=== PATIENT | female | born 1995 | race Caucasian/White ===

== ENCOUNTER 2018-01-07 10:55 | Outpatient (CLI) | payer BC, SELFPAY ==
[2018-01-07 12:02] LABS: HCT 40.4 % (36.0-46.0); HGB 13.6 g/dL (12.0-15.5); Mean Corp. HGB Concentration 33.7 g/dL (32.0-36.0); Mean Corpuscular Hemoglobin 31.3 pg (27.0-33.0); Mean Corpuscular Volume 92.9 fL (80-95); Mean Platelet Volume 10.7 fL (8.0-11.0); Platelet Count 286 x1000/uL (130-400); RBC 4.35 m/cumm (4.00-5.20); RBC Distribution Width 13.2 % (11.7-14.6); White Blood Cell Count 6.94 k/cumm (4.4-10.8)
[2018-01-07 12:25] LABS: Hemoglobin A1C 5.2 % (4.5-6.2)
== END 2018-01-07 11:15 ==
PROVIDERS: PCP Nurse Practitioner; Visit Provider Nurse Practitioner
DX: R53.83 Other fatigue (principal)
CPT/HCPCS: 36415; 85027; 83036; 84443

== ENCOUNTER 2019-04-01 15:28 | Outpatient (REF) | payer BC, SELFPAY ==
--- NOTE | 2019-04-01 15:15 | PAPFT_PTH ---
PATIENT: Laurie Deutsch LOC: [facility] U#:[id number] AGE/SX: 23/F ROOM: RE04/01/[address]: Aleksandr Mcdowell : 1995 BED: DIS: 04/01/2019 SPEC #: [id number] RECD: 04/01/19 18:01 STATUS: JELANI REDebbie #: [id number] ODILON: 04/01/19 15:[address]: Aleksandr Mcdowell DEPT: [facility] Cytology RECD BY: Malissa Emery ENTERED: 04/01/19 18:01 SP TYPE: PAPFT OTHR DR: Deepika Moreno Tissues: 1 - CX/ENDOCX FOR PAP SMEARS Procedures: PAP THIN PREP/[facility] Screening Comments: [id number]
== END 2019-04-01 15:48 ==
LOC: NCHCN 15:28
PROVIDERS: PCP Nurse Practitioner; Visit Provider Nurse Practitioner Family
DX: Z12.4 Encounter for screening for malignant neoplasm of cervix (principal)
CPT/HCPCS: 88142

== ENCOUNTER 2019-04-01 17:59 | Outpatient (REF) | payer BC, SELFPAY ==
[2019-04-01 18:36] LABS: HCT 40.8 % (36.0-46.0); HGB 13.6 g/dL (12.0-15.5); Mean Corp. HGB Concentration 33.3 g/dL (32.0-36.0); Mean Corpuscular Hemoglobin 30.4 pg (27.0-33.0); Mean Corpuscular Volume 91.3 fL (80-95); Mean Platelet Volume 10.4 fL (8.0-11.0); Platelet Count 384 x1000/uL (130-400); RBC 4.47 m/cumm (4.00-5.20); RBC Distribution Width 13.2 % (11.7-14.6); White Blood Cell Count 7.41 k/cumm (4.4-10.8)
[2019-04-01 19:10] LABS: ALT 25 U/L (14-59); AST 21 U/L (15-37); Albumin 4.1 g/dL (3.4-5.0); Alkaline Phosphatase 59 U/L (46-116); BUN 12 mg/dL (7-18); Bilirubin, Total 0.2 mg/dL (0.2-1.0); CREATININE 0.56 mg/dL (0.55-1.02); Calcium 9.6 mg/dL (8.5-10.1); Chloride 100 mmol/L (98-107); Glucose 92 mg/dL (74-106); Potassium 4.7 mmol/L (3.5-5.1); Sodium 140 mmol/L (136-145); TSH (W/Ref FT4) 3.86 uIU/mL (0.36-3.74); Total Protein 7.6 g/dL (6.4-8.2)
[2019-04-01 19:47] LABS: FREE T4 0.89 ng/dL (0.76-1.46)
== END 2019-04-01 18:19 ==
LOC: NCHCN 17:59
PROVIDERS: PCP Nurse Practitioner; Visit Provider Nurse Practitioner Family
DX: R53.83 Other fatigue (principal); R51 Headache
CPT/HCPCS: 80053; 85027; 84439; 84443

== ENCOUNTER 2019-11-12 02:11 | Outpatient (CLI) | payer BC, SELFPAY ==
[2019-11-12 07:58] LABS: Abs Immature Grans 0.02 10^3/uL (0.0-0.06); Absolute Basophil Count 0.04 10^3/uL (0.0-0.2); Absolute Eosinophil Count 0.04 10^3/uL (0.0-0.7); Absolute Lymphocyte Count 1.92 10^3/uL (1.2-3.4); Absolute Monocyte Count 0.55 10^3/uL (0.1-0.8); Absolute Neutrophil Count 4.55 10^3/uL (1.2-6.7); Basophils % 0.6; Eosinophils % 0.6; HCT 38.8 % (36.0-46.0); HGB 12.9 g/dL (11.2-15.7); Immature Grans % 0.3; MCH 29.9 pg (27.0-33.0); MCHC 33.2 % (32.0-36.0); MPV 10.1 fL (8.0-11.0); Monocytes % 7.7; Neutrophils % 63.8; Nucleated RBC 0 %; Platelet Count 329 10^3/uL (130-400); RBC 4.31 10^6/uL (3.93-5.22); RDW 13.2 % (11.7-14.6); RDW-SD 43.8 fL; WBC 7.12 10^3/uL (4.4-10.8)
[2019-11-12 08:39] LABS: ESR 29 mm/hr (0-20)
[2019-11-12 08:45] LABS: Iron 66 ug/dL (50-170); Total Iron Binding Capacity 371 ug/dL (250-450); Transferrin Sat 18 % (15-50)
[2019-11-12 08:57] LABS: ALT 20 U/L (14-59); AST 12 U/L (15-37); Albumin 3.5 g/dL (3.4-5.0); Alkaline Phosphatase 64 U/L (46-116); BUN 10 mg/dL (7-18); Bilirubin, Total 0.4 mg/dL (0.2-1.0); CREATININE 0.64 mg/dL (0.55-1.02); Chloride 103 mmol/L (98-107); Ferritin 13 ng/mL (8-252); Glucose 87 mg/dL (74-106); Potassium 5.2 mmol/L (3.5-5.1); Sodium 138 mmol/L (136-145); TSH 2.26 uIU/mL (0.36-3.74); Total Protein 6.9 g/dL (6.4-8.2)
[2019-11-12 09:15] LABS: C-Reactive Protein 1.23 mg/dL (0.0-0.3); FREE T4 0.88 ng/dL (0.76-1.46)
[2019-11-12 16:48] LABS: T3,Free 3.4 pg/mL (2.8-5.3)
[2019-11-12 17:05] LABS: T3, Total 150 ng/dL (97-169)
[2019-11-13 09:34] LABS: Thyroperoxidase Antibody 30 U/mL (<=60)
[2019-11-13 15:24] LABS: ANA Interpretation Negative (Negative)
== END 2019-11-12 02:31 ==
PROVIDERS: PCP Nurse Practitioner Family; Visit Provider Naturopath
DX: R53.83 Other fatigue (principal); M25.50 Pain in unspecified joint; E55.9 Vitamin D deficiency, unspecified
CPT/HCPCS: 36415; 80053; 82306; 85652; 86141; 82728; 83540; 83550; 84439; 84443; 84480; 84481; 85025; 86038; 86140; 86376

== ENCOUNTER 2019-12-12 02:39 | Outpatient (CLI) | payer BC, SELFPAY ==
[2019-12-12 16:56] LABS: Iron 33 ug/dL (50-170); Total Iron Binding Capacity 355 ug/dL (250-450); Transferrin Sat 9 % (15-50)
[2019-12-12 17:32] LABS: Ferritin 19 ng/mL (8-252); Folate 16.4 ng/mL (8.6-20.0); Vitamin B12 639 pg/mL (193-986)
[2019-12-15 09:34] LABS: Homocysteine 12.1 umol/L (5.0-13.9)
[2019-12-15 10:16] LABS: IgA 182 mg/dL (85-499); IgG 945 mg/dL (610-1,616); IgM 109 mg/dL (35-242)
[2019-12-16 12:34] LABS: Food Panel #2, IgE <0.35 kU/L
[2019-12-17 15:06] LABS: IgA 182 mg/dL (85-499); Interpretation (See Note); Tissue Transglutaminase IgA <1.2 U/mL (<4.0)
== END 2019-12-12 02:59 ==
PROVIDERS: PCP Nurse Practitioner Family; Visit Provider Naturopath
DX: R53.83 Other fatigue (principal); R79.89 Other specified abnormal findings of blood chemistry; K52.9 Noninfective gastroenteritis and colitis, unspecified
CPT/HCPCS: 36415; 82784; 83090; 83516; 86001; 82607; 82728; 82746; 83540; 83550; 86003

== ENCOUNTER 2020-06-11 20:43 | Outpatient (REF) | payer BC, SELFPAY ==
[2020-06-14 15:05] LABS: HSV 1 DNA Result Negative (Negative); HSV 2 DNA Result Negative (Negative)
== END 2020-06-11 20:44 | disposition home or self-care (01) ==
LOC: NCHCN 20:43
PROVIDERS: PCP Nurse Practitioner Family; Visit Provider Physician Assistant
DX: N76.6 Ulceration of vulva (principal)
CPT/HCPCS: 87529

== ENCOUNTER 2020-06-18 21:35 | Outpatient (REF) | payer BC, SELFPAY ==
[2020-06-18 21:25] LABS: Anion Gap 12.1 mmol/L (3-11); BUN 12 mg/dL (7-18); CO2 23.9 mmol/L (21.0-32.0); CREATININE 0.6 mg/dL (0.55-1.02); Calcium 9.5 mg/dL (8.5-10.1); Chloride 103 mmol/L (98-107); Glucose 86 mg/dL (74-106); Potassium 4.4 mmol/L (3.5-5.1); Sodium 139 mmol/L (136-145); TSH (W/Ref FT4) 2.26 uIU/mL (0.36-3.74)
[2020-06-18 21:30] LABS: Abs Immature Grans 0.03 10^3/uL (0.0-0.06); Absolute Basophil Count 0.05 10^3/uL (0.0-0.2); Absolute Eosinophil Count 0.03 10^3/uL (0.0-0.7); Absolute Lymphocyte Count 2.23 10^3/uL (1.2-3.4); Absolute Monocyte Count 0.56 10^3/uL (0.1-0.8); Absolute Neutrophil Count 6.68 10^3/uL (1.2-6.7); Basophils % 0.5; Eosinophils % 0.3; HCT 40.3 % (36.0-46.0); HGB 13.4 g/dL (11.2-15.7); Immature Grans % 0.3; Lymphocytes % 23.3; MCH 29.4 pg (27.0-33.0); MCHC 33.3 % (32.0-36.0); MCV 88.4 fL (80-95); Monocytes % 5.8; Neutrophils % 69.8; Nucleated RBC 0 %; Platelet Count 392 10^3/uL (130-400); RBC 4.56 10^6/uL (3.93-5.22); RDW 13.2 % (11.7-14.6); RDW-SD 42.8 fL; WBC 9.58 10^3/uL (4.4-10.8)
== END 2020-06-18 21:36 | disposition home or self-care (01) ==
LOC: NCHCN 21:35
PROVIDERS: PCP Nurse Practitioner Family; Visit Provider Nurse Practitioner Family
DX: R10.30 Lower abdominal pain, unspecified (principal); R53.83 Other fatigue
CPT/HCPCS: 80048; 84443; 85025; 87086

== ENCOUNTER 2020-08-07 11:32 | Outpatient (REF) | payer BC, SELFPAY ==
[2020-08-09 22:10] LABS: COVID-19 RT-PCR UVMMC Result Negative (Negative)
== END 2020-08-07 11:33 | disposition home or self-care (01) ==
LOC: NCHCN 11:32
PROVIDERS: PCP Nurse Practitioner Family; Visit Provider Physician Assistant Medical
DX: J02.9 Acute pharyngitis, unspecified (principal); Z20.822 Contact with and (suspected) exposure to COVID-19
CPT/HCPCS: U0003; 87070

== ENCOUNTER 2021-05-04 01:50 | Outpatient (CLI) | payer BC, SELFPAY ==
[2021-05-04 16:38] LABS: ESR 11 mm/hr (0-20); HCT 38.7 % (36.0-46.0); HGB 12.5 g/dL (11.2-15.7); MCH 29.6 pg (27.0-33.0); MCHC 32.3 % (32.0-36.0); MCV 91.7 fL (80-95); MPV 10.3 fL (8.0-11.0); Platelet Count 364 10^3/uL (130-400); RBC 4.22 10^6/uL (3.93-5.22); RDW 13.3 % (11.7-14.6)
[2021-05-04 17:00] LABS: Hemoglobin A1C 5.2 % (<5.7)
[2021-05-04 17:34] LABS: Iron 36 ug/dL (50-170); Total Iron Binding Capacity 343 ug/dL (250-450); Transferrin Sat 10 % (15-50)
[2021-05-04 18:43] LABS: Ferritin 18 ng/mL (8-252)
[2021-05-04 18:57] LABS: C-Reactive Protein 0.83 mg/dL (0.0-0.3)
[2021-05-05 00:12] LABS: Vitamin D 25 Total 28.7 ng/mL (30-100)
== END 2021-05-04 01:51 | disposition home or self-care (01) ==
LOC: LBO 01:50
PROVIDERS: PCP Nurse Practitioner Family; Visit Provider Nurse Practitioner Family
DX: R53.83 Other fatigue (principal); R35.0 Frequency of micturition; Z00.00 Encounter for general adult medical examination without abnormal findings
CPT/HCPCS: 36415; 82306; 85027; 85652; 82728; 83036; 83540; 83550; 84443; 86140

== ENCOUNTER 2021-05-16 15:46 | Outpatient (REF) | payer BC, SELFPAY ==
[2021-05-18 19:31] LABS: COVID-19 RT-PCR UVMMC Result Positive (Negative)
== END 2021-05-16 15:47 | disposition home or self-care (01) ==
LOC: LBN 15:46
PROVIDERS: PCP Nurse Practitioner Family; Visit Provider Nurse Practitioner Family
DX: Z20.822 Contact with and (suspected) exposure to COVID-19 (principal); R05.1 Acute cough
CPT/HCPCS: U0003

== ENCOUNTER 2021-06-13 17:05 | Emergency (ER) | payer BC, SELFPAY ==
--- NOTE | 2021-06-13 17:00 | RT.EKG_ITS ---
APPROVED REPORT Exam: Resting ECG Reason for Exam: chest pain Patient Location: E HR:76 bpm ECG Measurements Heart Rate 76 AXIS WI 144 P 42 QRSd 84 QRS 9 QT 356 T 12 QTc 400 Conclusion Sinus rhythm...normal P axis, V-rate 60- 99
[2021-06-13 17:19] VITALS: BP 135/87; PULSE 86; RESP 18; TEMP 36.6; O2SAT 100
[2021-06-13 18:25] LABS: Abs Immature Grans 0.02 10^3/uL (0.0-0.06); Absolute Basophil Count 0.05 10^3/uL (0.0-0.2); Absolute Eosinophil Count 0.02 10^3/uL (0.0-0.7); Absolute Lymphocyte Count 2.09 10^3/uL (1.2-3.4); Absolute Monocyte Count 0.58 10^3/uL (0.1-0.8); Absolute Neutrophil Count 6.19 10^3/uL (1.2-6.7); Basophils % 0.6; Eosinophils % 0.2; HCT 39.3 % (36.0-46.0); HGB 12.8 g/dL (11.2-15.7); Immature Grans % 0.2; Lymphocytes % 23.4; MCH 29.8 pg (27.0-33.0); MCHC 32.6 % (32.0-36.0); MCV 91.6 fL (80-95); MPV 10.3 fL (8.0-11.0); Monocytes % 6.5; Neutrophils % 69.1; Nucleated RBC 0 %; Platelet Count 354 10^3/uL (130-400); RBC 4.29 10^6/uL (3.93-5.22); RDW 13.5 % (11.7-14.6); RDW-SD 45.6 fL; WBC 8.95 10^3/uL (4.4-10.8)
--- NOTE | 2021-06-13 18:31 | ED.GENADUL_ITS ---
Discharge Plan Disposition Patient Disposition: HOME Condition: Stable Discharge Details Clinical Impression: Post covid-19 condition, unspecified Primary Care Provider: Katy Nixon ED Provider: Rashawn Carlisle Home Meds and New Rx's Prescriptions: Continued venlafaxine 75 mg capsule,extended release 24hr 75 mg PO DAILY 0RF Label Comments: TAKE ONE CAPSULE BY MOUTH EVERY DAY ergocalciferol (vitamin D2) 1,250 mcg (50,000 unit) capsule 1,250 mcg PO 7XD 0RF Label Comments: TAKE ONE CAPSULE BY MOUTH ONCE A WEEK Discharge Instructions Instructions: Dyspnea (ED) Additional Instructions: Please continue follow-up with your primary care provider. I agree with further outpatient cardiac testing but I do not feel that this needs to be performed on a emergent basis. If you do have any change in condition feel free to return for reassessment Referrals: Katy Nixon [Primary Care Provider] - 3 days (For reassessment and arrangement of further testing/work-up) Medical Decision Making Patient presented with chest pain of uncertain etiology. Patient does state recent Covid infection and has had malaise since with noticing over the past couple days increase of some chest pressure and shortness of breath with activity. At this time patient denies any pain or discomfort. Physical exam is unremarkable and specific patient does not have any cardiac murmur, no calf swelling or swelling to lower extremities, clear lung sounds, no JVD, and overall well in appearance Based ontheir history, lab analysis, EKG (which showed no evidence of ischemia or infarction), and imaging, in addition to the patient's physical exam, I see no evidence at this time for a malignant etiology for the patient's chest pain. There is no acute evidence for pulmonary embolus, acute myocardial infarction, pneumothorax, esophageal rupture, cardiac tamponade, thoracic artery dissection, or any other emergent cardiac, pulmonary or aortic pathology at this time. Based on the nature and long duration of the patient's pain, paucity of EKG findings, and normal cardiac enzymatic blood analysis, acute coronary syndrome is exceedingly unlikely. The patient also has very low risk for coronary artery disease based on their risk factor profile with no substantial risk factors HEART score _0-3. This patient may require cardiac stress testing or echo due to recent Covid infection but I feel this can be performed on an outpatient basis which patient states she has already discussed this with her primary care physician. The patient understands that at this time there is no evidence for a more malignant underlying process, but the patient also understands that early in the process of an illness, an emergency department workup can be falsely reassuring. Routine discharge counseling was given to the patient and the patient understands that worsening, changing, or persistent symptoms should prompt an immediate call or follow up with their primary physician or the emergency department immediately. The importance of close follow up was also discussed with the patient. Imaging Data Radiologic Study: Imaging: X-Ray Radiologist's impression: IMPRESSION: No acute findings Lab Data Labs: Laboratory Tests Range/Units 06/13/21 06/13/21 06/13/21 18:10 18:10 18:10 WBC (4.4-10.8) 10^3/uL 8.95 RBC (3.93-5.22) 10^6/uL 4.29 Hgb (11.2-15.7) g/dL 12.8 Hct (36.0-46.0) % 39.3 MCV (80-95) fL 91.6 MCH (27.0-33.0) pg 29.8 MCHC (32.0-36.0) % 32.6 RDW (11.7-14.6) % 13.5 Plt Count (130-400) 10^3/uL 354 MPV (8.0-11.0) fL 10.3 Immature Gran % 0.2 Neutrophils % 69.1 Lymphocytes % 23.4 Monocytes % 6.5 Eosinophils % 0.2 Basophils % 0.6 Nucleated RBC % % 0 Absolute Neutrophils (1.2-6.7) 10^3/uL 6.19 Absolute Lymphocytes (1.2-3.4) 10^3/uL 2.09 Absolute Monocytes (0.1-0.8) 10^3/uL 0.58 Absolute Eosinophils (0.0-0.7) 10^3/uL 0.02 Absolute Basophils (0.0-0.2) 10^3/uL 0.05 D-Dimer (<500) ng/mlFEU 240 Sodium (136-145) mmol/L 138 Potassium (3.5-5.1) mmol/L 3.9 Chloride (98-107) mmol/L 103 Carbon Dioxide (21.0-32.0) mmol/L 26.9 Anion Gap (3-11) mmol/L 8.1 BUN (7-18) mg/dL 12 Creatinine (0.55-1.02) mg/dL 0.6 Estimated GFR/1.73 m2 (mL/min/1.73m2) >= 60.00 Glucose (74-106) mg/dL 82 Calcium (8.5-10.1) mg/dL 8.7 Magnesium (1.8-2.4) mg/dL 2.0 Total Bilirubin (0.2-1.0) mg/dL 0.2 AST (15-37) U/L 24 ALT (14-59) U/L 26 Alkaline Phosphatase (46-116) U/L 63 Troponin I (<or=60) ng/L < 50 Total Protein (6.4-8.2) g/dL 7.6 Albumin (3.4-5.0) g/dL 3.8 Range/Units 06/13/21 20:40 WBC (4.4-10.8) 10^3/uL RBC (3.93-5.22) 10^6/uL Hgb (11.2-15.7) g/dL Hct (36.0-46.0) % MCV (80-95) fL MCH (27.0-33.0) pg MCHC (32.0-36.0) % RDW (11.7-14.6) % Plt Count (130-400) 10^3/uL MPV (8.0-11.0) fL Immature Gran % Neutrophils % Lymphocytes % Monocytes % Eosinophils % Basophils % Nucleated RBC % % Absolute Neutrophils (1.2-6.7) 10^3/uL Absolute Lymphocytes (1.2-3.4) 10^3/uL Absolute Monocytes (0.1-0.8) 10^3/uL Absolute Eosinophils (0.0-0.7) 10^3/uL Absolute Basophils (0.0-0.2) 10^3/uL D-Dimer (<500) ng/mlFEU Sodium (136-145) mmol/L Potassium (3.5-5.1) mmol/L Chloride (98-107) mmol/L Carbon Dioxide (21.0-32.0) mmol/L Anion Gap (3-11) mmol/L BUN (7-18) mg/dL Creatinine (0.55-1.02) mg/dL Estimated GFR/1.73 m2 (mL/min/1.73m2) Glucose (74-106) mg/dL Calcium (8.5-10.1) mg/dL Magnesium (1.8-2.4) mg/dL Total Bilirubin (0.2-1.0) mg/dL AST (15-37) U/L ALT (14-59) U/L Alkaline Phosphatase (46-116) U/L Troponin I (<or=60) ng/L < 50 Total Protein (6.4-8.2) g/dL Albumin (3.4-5.0) g/dL HPI General Mode of arrival: ambulatory . Date/Time Provider Initiated Documentation: 06/13/21 17:19 . Limitations to Documentation: no limitations . Information obtained by: patient . History of Present Illness 25 year old F presents to the emergency department with the chief complaint of Chest pain and shortness of breath with activity, described as moderate, Quality is described as other (Denies current pain or discomfort), and is localized to the chest (Pressure). Patient reports no radiation. Patient started experiencing this day(s) (2) and it has been intermittent. improves with No relieving factors improve symptom(s), Other factors that worsen symptoms (Activity) . Patient notes shortness of breath. Patient did receive the following treatments prior to arrival, none Related Data Home Medications Medication Instructions Recorded Confirmed ergocalciferol (vitamin D2) 1,250 1,250 mcg PO 7XD 06/13/21 06/13/21 mcg (50,000 unit) capsule venlafaxine 75 mg capsule,extended 75 mg PO DAILY 06/13/21 06/13/21 release 24 hr Allergies Allergy/AdvReac Type Severity Reaction Status Date / Time No Known Allergies Allergy Unverified 06/13/21 17:23 General Stated Complaint: Chest Pain MIKE: 3 Review of Systems Constitutional Constitutional: Denies chills, Denies fever(s) and Reports malaise (Since having Covid) Cardiovascular Cardiovascular: Reports as per HPI, Reports chest pain, Denies chest pain with activity, Denies syncope, Denies irregular heart rhythm, Denies leg edema, Denies lightheadedness, Denies palpitations, Reports dyspnea and Reports dyspnea on exertion Respiratory Respiratory: Denies cough, Denies hemoptysis, Reports dyspnea and Reports dyspnea on exertion Gastrointestinal Gastrointestinal: Denies abdominal pain, Denies nausea and Denies vomiting Neurologic Neurologic: Denies syncope Psychiatric Psychiatric: Denies anxiety Endocrine Endocrine: Denies cold intolerance, Denies heat intolerance and Denies palpitations PFSH All Active Problems (Updated 06/13/21 @ 21:25 by Rashawn Carlisle NP) Post covid-19 condition, unspecified (Acute) Social History Smoking/Tobacco Use Status: Never Smoking risk assessment performed?: Yes Alcohol Intake: current Alcohol Intake frequency: holidays/special occasions only Drug use: Never Substance use type: does not use Do you feel safe at home: Yes Do you feel safe in your relationship?: Yes Exam Const General: cooperative, comfortable, no acute distress, not diaphoretic and not ill appearing Nutritional Appearance: overweight Orientation: alert, awake and oriented x3 Limitations: mental status not altered Neck Neck: normal visual inspection, full ROM, trachea midline, supple and no anterior neck swelling Carotids: normal carotid upstroke and no bruits Resp Effort & Inspection: normal respiratory effort and able to speak in complete sentences Auscultation: clear to auscultation bilaterally Cardio Jugular venous pressure: no JVD Palpation: normal PMI Rate: regular rate Rhythm: regular rhythm Heart Sounds: S1 normal, S2 normal, no click, no gallops, no murmurs and no rubs Bruits: no abdominal aortic bruits and no carotid bruits Pulses: radial pulses present bilaterally 2+, posterior tibial pulses present and normal peripheral pulses Skin General skin exam: no rashes or lesions noted Neuro General: patient alert, patient awake, patient oriented x3, tone normal and moves all extremities Extrem General: no pedal edema and no calf tenderness Course Vital Signs Vital signs: Vital Signs Temperature 36.6 C 06/13/21 17:19 Pulse 86 06/13/21 17:19 Respiratory Rate 18 06/13/21 17:19 Blood Pressure 135/87 06/13/21 17:19 Pulse Oximetry 100 06/13/21 17:19 Temperature 36.6 C 06/13/21 17:19 Pulse 86 06/13/21 17:19 Respiratory Rate 18 06/13/21 17:19 Respiratory Effort Non-Labored 06/13/21 17:26 Blood Pressure 135/87 06/13/21 17:19 Blood Pressure Position Sitting 06/13/21 17:19 Pulse Oximetry 100 06/13/21 17:19 Oxygen Delivery Method Room Air 06/13/21 17:19 Oxygen Flow Rate 0 06/13/21 17:19 Lab/Test Results Lab/Test Results: Laboratory Tests Range/Units 06/13/21 18:10 WBC (4.4-10.8) 10^3/uL 8.95 RBC (3.93-5.22) 10^6/uL 4.29 Hgb (11.2-15.7) g/dL 12.8 Hct (36.0-46.0) % 39.3 MCV (80-95) fL 91.6 MCH (27.0-33.0) pg 29.8 MCHC (32.0-36.0) % 32.6 RDW (11.7-14.6) % 13.5 Plt Count (130-400) 10^3/uL 354 MPV (8.0-11.0) fL 10.3 Immature Gran % 0.2 Neutrophils % 69.1 Lymphocytes % 23.4 Monocytes % 6.5 Eosinophils % 0.2 Basophils % 0.6 Nucleated RBC % % 0 Absolute Neutrophils (1.2-6.7) 10^3/uL 6.19 Absolute Lymphocytes (1.2-3.4) 10^3/uL 2.09 Absolute Monocytes (0.1-0.8) 10^3/uL 0.58 Absolute Eosinophils (0.0-0.7) 10^3/uL 0.02 Absolute Basophils (0.0-0.2) 10^3/uL 0.05
[2021-06-13 18:41] LABS: ALT 26 U/L (14-59); AST 24 U/L (15-37); Albumin 3.8 g/dL (3.4-5.0); Alkaline Phosphatase 63 U/L (46-116); Anion Gap 8.1 mmol/L (3-11); BUN 12 mg/dL (7-18); Bilirubin, Total 0.2 mg/dL (0.2-1.0); CO2 26.9 mmol/L (21.0-32.0); CREATININE 0.6 mg/dL (0.55-1.02); Calcium 8.7 mg/dL (8.5-10.1); Chloride 103 mmol/L (98-107); Glucose 82 mg/dL (74-106); Potassium 3.9 mmol/L (3.5-5.1); Sodium 138 mmol/L (136-145); Total Protein 7.6 g/dL (6.4-8.2); Troponin I < 50 ng/L (<or=60)
--- NOTE | 2021-06-13 19:30 | DI.RAD_ITS ---
Exam(s) XR CHEST 2V PA LATERAL EXAM: XR CHEST 2V PA LATERAL CLINICAL HISTORY: SOB/ chest pain TECHNIQUE: 2D digital imaging was performed. COMPARISON: No exams were available for comparison FINDINGS: MEDIASTINUM: Normal. HEART: Normal. PULMONARY VASCULATURE: Normal. LUNGS: Clear. PLEURAL SPACE: No pleural effusion or pneumothorax. BONE:Unremarkable for age. IMPRESSION: No acute abnormality. DATA REPOSITORY: RADIATION DOSE DELIVERED:
[2021-06-13 19:41] LABS: D-Dimer 240 ng/mlFEU (<500)
[2021-06-13 21:03] LABS: Troponin I < 50 ng/L (<or=60)
[2021-06-13] MEDS: Ketorolac 15 MG/ML VIAL IVP (21:03)
[2021-06-13] MEDS: Normal Saline Flush 10 ML SYR IVP (21:03)
[2021-06-13 21:36] VITALS: BP 133/89; PULSE 79; RESP 16; O2SAT 100
--- NOTE | 2021-06-13 21:42 | DI.VRAD_ITS ---
PROCEDURE INFORMATION: Exam: XR Chest Exam date and time: 06/13/2021 8:07 PM Age: 25 years old Clinical indication: Other: SOB, chest pain TECHNIQUE: Imaging protocol: XR of the chest. Views: 2 views. COMPARISON: No relevant prior studies available. FINDINGS: Lungs: Unremarkable. No consolidation. Pleural spaces: Unremarkable. No pleural effusion. No pneumothorax. Heart/Mediastinum: Unremarkable. No cardiomegaly. Bones/joints: Unremarkable. IMPRESSION: No acute findings. Dictated and Authenticated by: Sydni Ferguson MD. Ordering:ODALYS Morocho MD
== END 2021-06-13 21:43 | disposition home or self-care (01) ==
PROVIDERS: Emergency Provider Nurse Practitioner Family; PCP Nurse Practitioner Family
DX: R07.9 Chest pain, unspecified (principal); R06.02 Shortness of breath; U09.9 Post COVID-19 condition, unspecified
CPT/HCPCS: 36415; 80053; 93005; 96374; 99284; 71046; 83735; 84484; 85025; 85379; 93010; J1885

== ENCOUNTER 2021-06-17 19:53 | Outpatient (REF) | payer BC, SELFPAY ==
[2021-06-17 20:22] LABS: FREE T4 0.88 ng/dL (0.76-1.46); TSH 3.63 uIU/mL (0.36-3.74)
== END 2021-06-17 19:54 | disposition home or self-care (01) ==
LOC: NCHCN 19:53
PROVIDERS: PCP Nurse Practitioner Family; Visit Provider Nurse Practitioner Family
DX: R53.83 Other fatigue (principal); R06.09 Other forms of dyspnea; U07.1 COVID-19
CPT/HCPCS: 84439; 84443

== ENCOUNTER 2021-07-18 04:07 | Outpatient (CLI) | payer BC, SELFPAY ==
--- NOTE | 2021-07-18 14:00 | DI.US_ITS ---
APPROVED REPORT EXAM: Comprehensive 2D, Doppler, and color-flow Echocardiogram Patient Location: Out-Patient Straw Hat Presser: Jada Pereyra RDCS (AE) Indications: HERRMANN Other Information Study Quality: Good Conclusion Normal left ventricular wall thickness and chamber size. Estimated ejection fraction is 60%. Wall m otion is normal Normal right ventricular size and systolic function Both atria are normal in size There is no structural or hemodynamically significant valvular disease Normal estimated right ventricular systolic pressure 22 mmHg Wall motion Left Ventricle The left ventricle is normal size. The left ventricular systolic function is normal. The left ventric ular ejection fraction is within the normal range. There is normal left ventricular wall thickness. T here is normal LV segmental wall motion. There is no ventricular septal defect visualized. LVEF is 60 %. Right Ventricle The right ventricle is normal size. The right ventricular systolic function is normal. The RVSP is 22 .5mmHg. Atria The left atrium size is normal. The right atrium size is normal. The interatrial septum is intact wit h no evidence for an atrial septal defect. Aortic Valve The aortic valve is normal in structure. Aortic valve is trileaflet. There is no aortic valvular sten osis. No aortic regurgitation is present. Mitral Valve The mitral valve is normal in structure. No evidence of mitral valve stenosis. Mild mitral regurgitat ion. Tricuspid Valve The tricuspid valve is normal in structure. There is no tricuspid valve stenosis. Trace to mild tricu spid regurgitation. Pulmonic Valve The pulmonary valve is normal in structure. There is no pulmonic valvular stenosis. Trace pulmonic re gurgitation. Great Vessels The aortic root is normal in size. The ascending aorta is normal in size. Aortic arch is normal in ca liber. IVC is normal in size and collapses >50% with inspiration. Pericardium There is no pericardial effusion. 2D Dimensions IVSD d PLAX 0.93 cm F: 0.6-1.0 LV Vol A2C d MOD 105.7 mL LVPW d PLAX 0.93 cm F: 0.6 - 1.0 LV Vol A4C d MOD 110.6 mL LVID d PLAX 4.87 cm F: 3.8 - 5.2 LA vol/ BSA A2C s A-L 29.0 mL/m2 LVDs 3.20 cm F: 2.2 - 3.5 LA vol/ BSA A4C s A-L 31.4 mL/m2 Ao Root d 2.36 cm F: 2.7 - 3.3 LA Vol/ BSA Biplane s A-L 31.7 mL/m2 RA Area A4C 16.05 cm2 LA Area A4C s MOD 21.24 cm2 RA Vol/ BSA A4C s A-L 21.5 mL/m2 LA Area A2C s MOD 19.41 cm2 Ao Asc Diam d 3.01 cm F: 2.3 - 3.1 LV EF A4C MOD 60.0 % LV EF Teichholz 62.5 % LV EF A2C MOD 60.6 % LVEF (Landa's) 61.09 % F: 54 - 74 LV EF Biplane MOD 61.1 % LV Volume 81.78 mL F: 46 - 106 SV 67.76 mL LV Volume Index 38.94 mL/m2 F: 29 - 61 SV Index 32.14 mL/m2 LV Vol Biplane MOD 110.9 mL FS 33.75 % M-Mode TAPSE 2.39 cm (M/F) >1.7 LV Diastology MV E' medial 0.152 (>0.07 m/s) E/A Ratio 1.5 LV E/e MED 5.85 (<14) MV E Vmax 0.89 (0.4-1.3 m/s) MV E' lateral 0.196 (>0.1 m/s) MV A Vmax 0.60 (0.4-1.3 m/s) LV E/e LAT 4.55 (<14) MV E/A Ratio 1.40 MV E/E' medial 5.87 MV E/E' lateral 4.55 Aortic Valve LVOT Area 3.02 cm2 AoV Area Vmax 2.90 cm2 LVOT Vmax 1.45 m/s AoV Area/ BSA (Vmax) 1.37 cm2/m2 LVOT Mean Laith. 0.95 m/s VINAYAK Mean Laith. 2.63 cm2 LVOT Peak Grad 8.4 mmHg VINAYAK Mean Laith. Index 1.25 cm2/m2 LVOT Mean Grad 4.3 mmHg LVOT VTI 0.317 m LVOT Diam s 1.95 cm AoV Vmax 1.51 m/s Velocity Ratio 0.96 AoV Mean Laith. 1.09 m/s AoV Peak Grad 9.1 mmHg LVOT SV 95.80 mL AoV Mean Grad 5.2 mmHg AoV VTI 0.330 m AoV Area VTI 2.90 cm2 AoV Area/ BSA (VTI) 1.38 cm/m2 Mitral Valve MV DT 206 (160-240 msec) MR Vmax 4.72 m/s MV PHT 60 msec MR VTI 1.693 m MV Area PHT 3.69 cm2 MR Peak Grad 89.0 mmHg MV VTI 0.300 m MR Mean Grad 66.2 mmHg MV VTI Annulus 0.299 m MV Area VTI 3.18 (4.0-6.0 cm2) Pulmonary Valve PV Vmax 1.11 (0.5-1.5 m/s) RVOT Peak Gr. 3.93 mmHg PV Peak Grad 4.9 mmHg RVOT Mean Gr. 1.80 mmHg PV Mean Grad 2.8 mmHg RVOT VTI 0.216 m PV VTI 0.238 m RVOT Vmax 0.99 m/s Tricuspid Valve TR Peak Grad 19.5 mmHg TR Vmax 2.21 m/s RA Pressure 3.00 mmHg RVSP (TR) 22.5 mmHg
== END 2021-07-18 04:27 ==
PROVIDERS: PCP Nurse Practitioner Family; Visit Provider Family Medicine
DX: R06.09 Other forms of dyspnea (principal)
CPT/HCPCS: 93306

== ENCOUNTER 2021-12-27 02:05 | Outpatient (CLI) | payer BC, SELFPAY ==
[2021-12-27 12:17] LABS: PTT Activated 26.1 sec (21.0-27.5); Prothrombin Time 9.7 sec (9.3-11.0)
== END 2021-12-27 02:06 | disposition home or self-care (01) ==
PROVIDERS: PCP Nurse Practitioner Family; Visit Provider Nurse Practitioner Family
DX: R23.8 Other skin changes (principal); N92.0 Excessive and frequent menstruation with regular cycle
CPT/HCPCS: 36415; 85610; 85730

== ENCOUNTER 2022-01-11 19:01 | Outpatient (REF) | payer BC, SELFPAY ==
[2022-01-13 10:59] LABS: COVID-19 RT-PCR UVMMC Result Negative (Negative)
== END 2022-01-11 19:02 | disposition home or self-care (01) ==
LOC: LBN 19:01
PROVIDERS: PCP Nurse Practitioner Family; Visit Provider Physician Assistant Medical
DX: Z20.822 Contact with and (suspected) exposure to COVID-19 (principal); R07.9 Chest pain, unspecified
CPT/HCPCS: U0003

== ENCOUNTER 2022-02-27 04:14 | Outpatient (CLI) | payer BC, SELFPAY ==
[2022-02-27 16:15] LABS: HCT 40.5 % (36.0-46.0); HGB 13.4 g/dL (11.2-15.7); MCHC 33.1 % (32.0-36.0); MCV 91 fL (80-95); MPV 10.1 fL (8.0-11.0); Platelet Count 386 10^3/uL (130-400); RBC 4.47 10^6/uL (3.93-5.22); RDW 13.2 % (11.7-14.6); RDW-SD 43.2 fL
[2022-02-27 17:01] LABS: TSH 3.09 uIU/mL (0.36-3.74)
[2022-03-01 11:04] LABS: Factor 8 Assay 126 % (50-150)
[2022-03-01 13:26] LABS: Coag FactorVIII Activity Assay 135 % (55 - 200); von Willebrand Factor Activity 86 % (55 - 200); von Willebrand Factor Ag 113 % (55 - 200)
== END 2022-02-27 04:15 | disposition home or self-care (01) ==
LOC: LBO 04:14
PROVIDERS: PCP Nurse Practitioner Family; Visit Provider Nurse Practitioner Family
DX: N92.0 Excessive and frequent menstruation with regular cycle (principal); R53.83 Other fatigue; R23.8 Other skin changes
CPT/HCPCS: 36415; 85027; 85240; 85246; 85390; 85397; 84439; 84443

== ENCOUNTER 2022-05-02 16:10 | Outpatient (REF) | payer BC, SELFPAY ==
[2022-05-02 16:26] LABS: ALT 25 U/L (14-59); AST 18 U/L (15-37); Albumin 3.9 g/dL (3.4-5.0); Alkaline Phosphatase 57 U/L (46-116); Anion Gap 3.8 mmol/L (3-11); BUN 11 mg/dL (7-18); Bilirubin, Total 0.5 mg/dL (0.2-1.0); CO2 29.2 mmol/L (21.0-32.0); CREATININE 0.6 mg/dL (0.55-1.02); Calcium 9.3 mg/dL (8.5-10.1); Chloride 104 mmol/L (98-107); Estimated GFR 125.31 (mL/min/1.73m2); Glucose 94 mg/dL (74-106); Potassium 4.4 mmol/L (3.5-5.1); Sodium 137 mmol/L (136-145); Total Protein 7.7 g/dL (6.4-8.2)
[2022-05-02 16:30] LABS: Abs Immature Grans 0.02 10^3/uL (0.0-0.06); Absolute Basophil Count 0.04 10^3/uL (0.0-0.2); Absolute Eosinophil Count 0.02 10^3/uL (0.0-0.7); Absolute Lymphocyte Count 1.73 10^3/uL (1.2-3.4); Absolute Neutrophil Count 5.16 10^3/uL (1.2-6.7); Basophils % 0.5; Eosinophils % 0.3; HCT 41.1 % (36.0-46.0); HGB 13.3 g/dL (11.2-15.7); Immature Grans % 0.3; Lymphocytes % 23.2; MCH 29.3 pg (27.0-33.0); MCHC 32.4 % (32.0-36.0); MCV 91 fL (80-95); MPV 10.9 fL (8.0-11.0); Monocytes % 6.7; Platelet Count 350 10^3/uL (130-400); RBC 4.54 10^6/uL (3.93-5.22); RDW 13.2 % (11.7-14.6); RDW-SD 43.5 fL; WBC 7.47 10^3/uL (4.4-10.8)
== END 2022-05-02 16:11 | disposition home or self-care (01) ==
LOC: NCHCN 16:10
PROVIDERS: PCP Nurse Practitioner Family; Visit Provider Physician Assistant Medical
DX: U07.1 COVID-19 (principal)
CPT/HCPCS: 80053; 85025

== ENCOUNTER 2022-08-19 13:00 | Outpatient (REF) | payer BC, SELFPAY ==
[2022-08-19 16:15] LABS: Abs Immature Grans 0.02 10^3/uL (0.0-0.06); Absolute Basophil Count 0.05 10^3/uL (0.0-0.2); Absolute Eosinophil Count 0.03 10^3/uL (0.0-0.7); Absolute Lymphocyte Count 1.79 10^3/uL (1.2-3.4); Absolute Monocyte Count 0.69 10^3/uL (0.1-0.8); Basophils % 0.7; Eosinophils % 0.4; HCT 38.3 % (36.0-46.0); HGB 12.7 g/dL (11.2-15.7); Immature Grans % 0.3; Lymphocytes % 23.9; MCH 29.8 pg (27.0-33.0); MCHC 33.2 % (32.0-36.0); MCV 90 fL (80-95); MPV 10.9 fL (8.0-11.0); Monocytes % 9.2; Neutrophils % 65.5; Platelet Count 347 10^3/uL (130-400); RBC 4.26 10^6/uL (3.93-5.22); RDW 13.2 % (11.7-14.6); WBC 7.48 10^3/uL (4.4-10.8)
[2022-08-19 16:33] LABS: BUN 15 mg/dL (7-18); CREATININE 0.6 mg/dL (0.55-1.02); Calcium 8.7 mg/dL (8.5-10.1); Chloride 102 mmol/L (98-107); Estimated GFR 125.31 (mL/min/1.73m2); Glucose 86 mg/dL (74-106); Potassium 4.7 mmol/L (3.5-5.1); Sodium 137 mmol/L (136-145); TSH (W/Ref FT4) 2.51 uIU/mL (0.36-3.74)
[2022-08-21 10:55] LABS: Lyme Ab w Rflx to Lyme Confirm Negative (Negative)
[2022-08-23 13:00] LABS: Anaplasma phagocytophilum Negative (Negative); B. miyamotoi PCR Negative (Negative); Babesia divergens/MO-1 Negative (Negative); Babesia duncani Negative (Negative); Babesia microti Negative (Negative); Ehrlichia chaffeensis Negative (Negative); Ehrlichia ewingii/canis Negative (Negative); Ehrlichia muris eauclairensis Negative (Negative)
== END 2022-08-19 13:01 | disposition home or self-care (01) ==
LOC: LBN 13:00
PROVIDERS: PCP Nurse Practitioner Family; Visit Provider Physician Assistant Medical
DX: J02.9 Acute pharyngitis, unspecified (principal); R53.83 Other fatigue
CPT/HCPCS: 80048; 87798; 84443; 85025; 86618; 87070